=== PATIENT | male | born 1970 | race Caucasian/White ===

== ENCOUNTER 2020-12-16 17:57 | Emergency (ER) | payer SELFPAY ==
[~2020-12-16] VITALS: Ht 172.7 cm; Wt 61.2 kg
[2020-12-16 18:00] VITALS: BP 124/74
--- NOTE | 2020-12-16 18:25 | NUR ---
BIBA taken to bed 12
--- NOTE | 2020-12-16 18:35 | NUR ---
50/M biba with c/o fall. Per EMS, patient was at a private residence where he states he tripped over a tree branch. Patient presents with a laceration to left eyebrow, bleeding is controlled at this time. Patient denies LOC, awake and able to answer questions. Patient denies chest pain, shortness of breath or abdominal pain.
[2020-12-16] MEDS ORDERED: BACITRACIN OINT 500 UNITS/GM PKT TP ONE (18:45)
--- NOTE | 2020-12-16 19:11 | NUR ---
Received report from VINCENT Diaz
--- NOTE | 2020-12-16 19:23 | NUR ---
PT TAKEN TO CT VIA W/C
--- NOTE | 2020-12-16 19:42 | NUR ---
pt. back from ct
[2020-12-16] MEDS ORDERED: BACI1PAC6 TP (19:56)
--- NOTE | 2020-12-16 19:56 | NUR ---
Wound care performed on left eyebrow lac. Bleeding contained. 1 inch closed laceration noted on outer eyebrow and another 1 inch closed laceration on inner eyebrow; Bacitracin applied.
[2020-12-16] MEDS ORDERED: KETOROLAC 30 MG/ML VIAL IM ONE (20:20)
--- NOTE | 2020-12-16 20:20 | NUR ---
pain of 7/10 back pain; ermd notified
[2020-12-16] MEDS ORDERED: KETOROLAC 30 MG/ML VIAL ONE (20:21)
[2020-12-16 20:27] VITALS: BP 128/79
== END 2020-12-16 20:13 | disposition home or self-care (01) ==
LOC: MED 17:57
DX: S00.12XA Contusion of left eyelid and periocular area, initial encounter (principal); G89.29 Other chronic pain; M54.5 Low back pain; Z79.899 Other long term (current) drug therapy; W01.0XXA Fall on same level from slipping, tripping and stumbling without subsequent striking against object, initial encounter; Y93.89 Activity, other specified; Y92.89 Other specified places as the place of occurrence of the external cause; Y99.8 Other external cause status
CPT/HCPCS: 70450; 72125; 96372; 99285; J1885